=== PATIENT | male | born 1970 | race American Indian/Alaskan Native ===

== ENCOUNTER 2021-11-13 22:32 | Emergency (ER) | payer SELFPAY ==
[2021-11-14] MEDS ORDERED: HYDROcodone/ACETAMINOPHEN 5-325 MG TAB PO STA (03:54)
--- NOTE | 2021-11-14 05:03 | Emergency Department Report ---
ED ENT HPI - General Chief complaint: Earache Stated complaint: RT EAR PAIN Time Seen by Provider: 11/14/21 03:47 Source: patient Mode of arrival: Ambulatory Limitations: No Limitations - History of Present Illness MD complaint: ear pain -: Gradual Location: R ear Severity: mild, moderate Quality: aching, dull Consistency: constant Improves with: none Worsens with: none Associated Symptoms: discharge from ear. denies: gum swelling, toothache, sore throat, tinnitus - Related Data Previous Rx's Medication Instructions Recorded Last Taken Type Amoxicillin/Potassium Clav 1 each PO BID #20 tablet 11/14/21 Unknown Rx [Augmentin 875-125 Tablet] Ketorolac [Toradol] 10 mg PO Q6H PRN #15 tablet 11/14/21 Unknown Rx Neomy/Polymyx B/Hc (Otic) Soln 4 drops OT TID #1 bottle 11/14/21 Unknown Rx [Cortisporin (Otic) Soln] Allergies Allergy/AdvReac Type Severity Reaction Status Date / Time No Known Allergies Allergy Unverified 11/13/21 23:27 ED Dental HPI - General Chief complaint: Earache Stated complaint: RT EAR PAIN Time Seen by Provider: 11/14/21 03:47 Source: patient Mode of arrival: Ambulatory Limitations: No Limitations - Related Data Previous Rx's Medication Instructions Recorded Last Taken Type Amoxicillin/Potassium Clav 1 each PO BID #20 tablet 11/14/21 Unknown Rx [Augmentin 875-125 Tablet] Ketorolac [Toradol] 10 mg PO Q6H PRN #15 tablet 11/14/21 Unknown Rx Neomy/Polymyx B/Hc (Otic) Soln 4 drops OT TID #1 bottle 11/14/21 Unknown Rx [Cortisporin (Otic) Soln] Allergies Allergy/AdvReac Type Severity Reaction Status Date / Time No Known Allergies Allergy Unverified 11/13/21 23:27 ED Review of Systems ROS: Stated complaint: RT EAR PAIN Other details as noted in HPI Comment: All other systems reviewed and negative ED Past Medical Hx - Past Medical History Previous Medical History?: No - Surgical History Past Surgical History?: No - Medications Home Medications: Home Medications Medication Instructions Recorded Confirmed Last Taken Type Amoxicillin/Potassium Clav 1 each PO BID #20 tablet 11/14/21 Unknown Rx [Augmentin 875-125 Tablet] Ketorolac [Toradol] 10 mg PO Q6H PRN #15 tablet 11/14/21 Unknown Rx Neomy/Polymyx B/Hc (Otic) Soln 4 drops OT TID #1 bottle 11/14/21 Unknown Rx [Cortisporin (Otic) Soln] ED Physical Exam - General Limitations: No Limitations General appearance: alert, in no apparent distress - Head Head exam: Present: atraumatic, normocephalic - Eye Eye exam: Present: normal appearance, PERRL, EOMI Pupils: Present: normal accommodation - ENT ENT exam: Present: normal exam, normal orophraynx, mucous membranes moist, other (Her ear is tragal tenderness with palpation. Swelling to the ear canal with some discharge noted. No mastoid tenderness is is present. Pharynx is clear airway patent and uvula midline. No lymphadenopathy appreciated). Absent: TM's normal bilaterally (Redness to the right tympanic membrane with small effusion noted.) - Neck Neck exam: Present: normal inspection, full ROM - Respiratory Respiratory exam: Present: normal lung sounds bilaterally. Absent: respiratory distress - Cardiovascular Cardiovascular Exam: Present: regular rate, normal rhythm. Absent: systolic murmur, diastolic murmur, rubs, gallop - GI/Abdominal GI/Abdominal exam: Present: soft, normal bowel sounds - Rectal Rectal exam: Present: deferred - Extremities Exam Extremities exam: Present: normal inspection - Back Exam Back exam: Present: normal inspection - Neurological Exam Neurological exam: Present: alert, oriented X3 - Psychiatric Psychiatric exam: Present: normal affect, normal mood - Skin Skin exam: Present: warm, dry, intact, normal color. Absent: rash ED Course Vital Signs 11/13/21 23:26 Temperature 98.2 F Pulse Rate 62 Respiratory 18 Rate Blood Pressure 120/69 O2 Sat by Pulse 98 Oximetry ED Medical Decision Making - Medical Decision Making Exam and history Ms. Azevedo consistent with otitis media. I have low suspicion at this time for mastoiditis, malignant otitis externa, herpes, retained foreign body. No evidence of any tympanic membrane rupture 4th cranial nerve palsy plan will provide a prescription for antibiotics for the next 7 to 10 days. And return precautions were were discussed with full understanding. Critical care attestation.: If time is entered above; I have spent that time in minutes in the direct care of this critically ill patient, excluding procedure time. ED Disposition Clinical Impression: Otitis externa, Otitis media Disposition: HOME / SELF CARE / HOMELESS Is pt being admited?: No Does the pt Need Aspirin: No Condition: Stable Instructions: Ear Drops, Adult, Otitis Externa, Otitis Media, Adult Prescriptions: Amoxicillin/Potassium Clav [Augmentin 875-125 Tablet] 1 each PO BID #20 tablet Neomy/Polymyx B/Hc (Otic) Soln [Cortisporin (Otic) Soln] 4 drops OT TID #1 bottle Ketorolac [Toradol] 10 mg PO Q6H PRN #15 tablet PRN Reason: Pain Referrals: PRIMARY CARE, [Primary Care Provider] - 3-5 Days [facility] [Provider Group] - 3-5 Days
[2021-11-14 05:19] VITALS: BP 123/70
== END 2021-11-14 05:19 | disposition home or self-care (01) ==
LOC: ED 22:32
DX: H60.91 Unspecified otitis externa, right ear (principal); H66.91 Otitis media, unspecified, right ear
CPT/HCPCS: 99282